=== PATIENT | male | born 1975 | race African-American/Black ===

== ENCOUNTER 2017-02-25 13:00 | Inpatient (IN) | payer MEDICARE ==
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
--- NOTE | ~2017-02-25 | DS ---
Unit #: [id number] #: [id number] Patient: LICO YARBROUGH [id number] [facility] [address] [place] [address] [id number] I MR#: [id number] NAME: LICO YARBROUGH ROOM: P263 Age: 41 Sex: M Admission Date: 02/25/2017 : 1975 Discharge Date: 02/28/2017 Attending Physician: Dallin Barone M.D. Primary Care Physician: Dustin Lancaster M.D. DISCHARGE SUMMARY REASON FOR ADMISSION Mr. Yarbrough is a 41-year-old man, who apparently relocated to [place] from [place] and has been off his medications for some time. He had suicidal ideation with multiple plans and could not contract for safety. He was admitted for stabilization. DIAGNOSTIC STUDIES LABORATORY RESULTS: Please see hospital chart. HOSPITAL COURSE Mr. Yarbrough was admitted and placed on suicide precautions. Invega 6 mg daily and Depakote 500 mg b.i.d. were both restarted as the patient stated these had been effective in the past. Trazodone 50 mg at bedtime was added for insomnia and the patient was reported to have an infection for which he was taking Flagyl 500 mg b.i.d. and this was continued unchanged. Physical examination was unremarkable. He had an uneventful hospital stay and was generally isolated from groups and peers. On the date of discharge, he again contracted for safety with no evidence of suicidal ideation, intent, or plan and no evidence of psychosis. ADMITTING DIAGNOSES AXIS I: Schizophrenia, paranoid type. AXIS II: No diagnosis. AXIS III: Gastrointestinal infection. AXIS IV: AXIS V: DISCHARGE INSTRUCTIONS Follow up with [facility]. DISCHARGE MEDICATIONS Invega 6 mg daily for psychosis, Depakote 500 mg b.i.d. for mood stability, trazodone 50 mg at bedtime for insomnia, Flagyl 500 mg b.i.d. until gone for infection. CONDITION AT DISCHARGE Improved. PROGNOSIS Fair to good. Unit #: [id number] #: [id number] Patient: LICO YARBROUGH DIET AND ACTIVITY Per primary care doctor. Dictated by... Dallin Barone M.D. [facility]/kayleigh TD: 03/01/2017 01:05 JOB #: [id number] DISCHARGE SUMMARY Page 1 of 1 X Dallin Barone MD DISCHARGE SUMMARY
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
== END 2017-02-28 16:25 | disposition home or self-care (01) | DRG 885 ==
LOC: P2L 19:32
DX: F20.0 Paranoid schizophrenia (principal); Z59.0 Homelessness; R45.851 Suicidal ideations; A09 Infectious gastroenteritis and colitis, unspecified; Z62.810 Personal history of physical and sexual abuse in childhood

== ENCOUNTER 2017-03-04 10:00 | Inpatient (IN) | payer MEDICARE ==
--- NOTE | ~2017-03-04 | PA ---
Unit #: [id number] #: [id number] Patient: LICO YARBROUGH [id number] [place] [address] [id number] I MR#: [id number] NAME: LICO YARBROUGH ROOM: P252 Age: 41 Sex: M Admission Date: 03/04/2017 : 1975 Date of Assessment: 03/05/2017 Attending Physician: Dallin Barone M.D. Admitting Physician: Dallin Barone M.D. Primary Care Physician: Dustin Lancaster M.D. PSYCHIATRIC ASSESSMENT INFORMANTS Patient, partially reliable. [place], reliable. CHIEF COMPLAINT Suicidal ideation. HISTORY OF PRESENT ILLNESS Mr. Yarbrough is a 41-year-old man, just recently discharged from this facility, who continued to report auditory hallucinations with a plan to kill himself. He had multiple psychiatric symptoms and had a plan to inhale burning charcoal. He was readmitted for further assessment and stabilization. PAST PSYCHIATRIC HISTORY As noted, the patient has a history of treatment for depression and schizophrenia in the past and this is his second admission to [facility] in recent days. FAMILY PSYCHIATRIC HISTORY None reported. SOCIAL HISTORY Please see previous assessments. The patient appears to be temporarily homeless in the [place] area. PAST MEDICAL HISTORY No chronic medical problems. MEDICATIONS Please see MAR. ALLERGIES No known medication allergies. SUBSTANCE USE HISTORY None reported. MENTAL STATUS EXAMINATION Mr. Yarbrough presented as a mildly disheveled man, appearing his stated age. His speech was spontaneous, but sparse. His mood was depressed and irritable with a congruent affect. He was alert and fully oriented. His memory and concentration were intact. His thought processes did not appear psychotic or disorganized, although he reported auditory Unit #: [id number] #: [id number] Patient: LICO YARBROUGH hallucinations with command suicidal content. He also reported ongoing suicide thoughts. Insight and judgment were fair. Fund of knowledge and abstraction were fair. ASSETS AND LIABILITIES The patient appears to know local resources and is voluntary. Liabilities include recent relapse. ADMITTING DIAGNOSES AXIS I: Schizophrenia, paranoid type by history. Major depressive disorder. AXIS II: No diagnosis. AXIS III: None. AXIS IV: AXIS V: PSYCHIATRIC PLAN The patient was readmitted and placed back on his previous effective medications. We will explore further treatment options for him and anticipate discharge after about a five-day stay. Dictated by... Connie Sánchez/kayleigh TD: 03/07/2017 21:03 JOB #: [id number] PSYCHIATRIC ASSESSMENT Page 1 of 1 X Dallin Barone MD X PSYCHIATRIC ASSESSMENT
--- NOTE | ~2017-03-04 | PN ---
Unit #: [id number] #: [id number] Patient: LICO YARBROUGH [id number] [facility] [address] [place] [address] [id number] MR#: [id number] NAME: LICO YARBROUGH ROOM: P252 Age: 41 Sex: M Admission Date: 03/04/2017 : 1975 Attending Physician: Dallin Barone M.D. Admitting Physician: Dallin Barone M.D. Primary Care Physician: Connie Mcgraw PROGRESS NOTES DATE 03/06/2017 DISCUSSION Mr. Yarbrough continues to report depression, although he looks a little better today on interview. He is alert and fully oriented. His memory and concentration are fair and his thought processes are logical with no evidence of psychosis. ASSESSMENT Schizophrenia by history, major depression. PLAN We will continue current treatment plan and anticipate discharge in the near future. Dictated by... Connie SánchezH/ts TD: 03/09/2017 08:19 JOB #: [id number] [facility] PROGRESS NOTES Page 1 of 1 X Dallin Barone MD X PROGRESS NOTE
--- NOTE | ~2017-03-04 | DS ---
Unit #: [id number] #: [id number] Patient: LICO YARBROUGH [id number] [facility] [address] [place] [address] [id number] I MR#: [id number] NAME: LICO YARBROUGH ROOM: [facility] Age: 41 Sex: M Admission Date: 03/04/2017 : 1975 Discharge Date: 03/07/2017 Attending Physician: Dallin Barone M.D. Primary Care Physician: Dustin Lancaster M.D. DISCHARGE SUMMARY REASON FOR ADMISSION Mr. Yarbrough is a 41-year-old man who was just discharged from this facility, who reported a relapse onto auditory hallucinations with suicidal content. He was unable to contract for safety and was admitted for stabilization. DIAGNOSTIC STUDIES LABORATORY RESULTS: Please see hospital chart. HOSPITAL COURSE Mr. Yarbrough was admitted and placed on suicide precautions. His home medications were restarted. He had an uneventful hospital stay with no evidence of response to internal stimuli, although he did have some odd behaviors on the unit. He contracted for safety on the date of discharge and stated that he obtained placement in the community. DISCHARGE DIAGNOSES AXIS I: Schizophrenia, paranoid type; major depressive disorder. AXIS II: No diagnosis. AXIS III: Recent gastrointestinal infection. AXIS IV: AXIS V: DISCHARGE INSTRUCTIONS Follow up with [facility]. DISCHARGE MEDICATIONS Invega 6 mg daily for psychosis, Depakote 500 mg b.i.d. for mood stability, trazodone 50 mg at bedtime for insomnia, and Flagyl 500 mg b.i.d. until gone for infection. CONDITION AT DISCHARGE Improved. PROGNOSIS Fair to good. DIET AND ACTIVITY Per primary care physician. Dictated by... Dallin Barone M.D. Unit #: [id number] #: [id number] Patient: LICO YARBROUGH [facility]/modl TD: 03/08/2017 00:37 JOB #: [id number] DISCHARGE SUMMARY Page 1 of 1 X Dallin Barone MD X DISCHARGE SUMMARY
[2017-03-06 10:26] LABS: AMPHETAMINE NEG (NEG); BARBITURATES NEG (NEG); BENZODIAZEPINES NEG (NEG); COCAINE NEG (NEG); MARIJUANA POS (NEG); OPIATES NEG (NEG); TRICYCLIC ANTIDEPRESSANTS NEG (NEG); U METHADONE NEG (NEG)
== END 2017-03-07 11:30 | disposition home or self-care (01) | DRG 885 ==
LOC: P2L 15:00
PROVIDERS: Psychiatry & Neurology Psychiatry
DX: F20.0 Paranoid schizophrenia (principal); F32.9 Major depressive disorder, single episode, unspecified
CPT/HCPCS: 80164; 80307

== ENCOUNTER 2017-06-15 02:00 | Inpatient (IN) | payer OTHER ==
[~2017-06-15] VITALS: Ht 180.3 cm; Wt 81.6 kg
--- NOTE | ~2017-06-15 | HP ---
Unit #: [id number] #: [id number] Patient: LICO CAREY [id number] [place] [address] [id number] I MR#: [id number] NAME: LICO CAREY ROOM: P208 Age: 41 Sex: M Admission Date: 06/15/2017 : 1975 Attending Physician: Dallin Barone M.D. Admitting Physician: Dallin Barone M.D. Primary Care Physician: Coty Manley M.D. HISTORY AND PHYSICAL HISTORY OF PRESENT ILLNESS Lico is a 41-year-old male admitted to [address] [place] [address] with depression and verbalizing wanting to hurt himself. He has had other admissions to this facility. PAST MEDICAL HISTORY Nothing significant. PAST SURGICAL HISTORY Nothing reported. ALLERGIES No known drug allergies. SOCIAL HISTORY He smokes 1/2 pack per day. Drinks alcohol socially. Admits to using marijuana frequently. FAMILY HISTORY Medically noncontributory. REVIEW OF SYSTEMS CONSTITUTIONAL: No fever or chills. HEENT: Denies any sore throat, ear pain or runny nose. CARDIOVASCULAR: Denies chest pain, irregular heart rhythm or palpitations. CHEST: Denies shortness of breath or cough. No hemoptysis. GASTROINTESTINAL: Denies nausea, vomiting, diarrhea or chronic constipation. ENDOCRINE: Denies history of increased thirst or urination. No recent significant weight loss or gain. GENITOURINARY: Denies dysuria, frequency, or hematuria. SKIN: Denies any rashes. HEMATOLOGIC: Denies history of increased bleeding or bruising. MUSCULOSKELETAL: Denies any hot, swollen joints. No generalized muscle pain. NEUROLOGIC: Denies problems with vision or speech. No frequent, severe headaches. No numbness, tingling or weakness in any extremities. Denies loss of bladder or bowel control. CURRENT MEDICATIONS 1. Invega 6 mg daily. 2. Remeron 30 mg q.h.s. 3. Desyrel 50 mg q.h.s. Unit #: [id number] #: [id number] Patient: LICO CAREY 4. Milk of Magnesia p.r.n. 5. Maalox p.r.n. 6. Tylenol p.r.n. 7. Nicotine patch 14 mg daily. PHYSICAL EXAMINATION GENERAL: Alert, well-nourished, in no apparent distress. VITAL SIGNS: Blood pressure 140/88, heart rate 74, respirations 16, temperature 98.6. WEIGHT: 180. HEIGHT: 5 feet 11 inches. SKIN: Warm and dry without rash or lesion. HEENT: Normocephalic. TMs not viewed. Oral and nasal passages clear. Conjunctivae clear. PERRLA. EOMs intact. NECK: Supple without lymphadenopathy or thyromegaly. HEART: Regular rate and rhythm without murmur. LUNGS: Clear. ABDOMEN: Soft, nontender. : Not done. EXTREMITIES: No evidence of cyanosis, clubbing or edema. Moves all without focal deficit. NEUROLOGICAL: Grossly within normal limits. Cranial Nerves: II: Visual rosales are intact. III, IV AND : Extraocular movements are intact. Pupils are equal, round and reactive to light. V: Facial sensation is grossly normal. VII: Facial movements and expression are normal. VIII: Auditory acuity grossly intact. IX, X: Uvula is midline. Phonation is normal. XI: Patient shrugs shoulders and turns head normally. XII: Tongue protrudes in the midline. Sensory and Motor Function: Sensory and motor sensation is grossly normal. Motor: moves all extremities well. Coordination: Gait is normal. Deep Tendon Reflexes: Intact. IMPRESSION Psychiatric admission. RECOMMENDATIONS PSYCHIATRIC: Per psychiatrist. MEDICAL: See no contraindication to participate in facility's activities. MEDICAL PROGNOSIS Good. MEDICAL CONDITION Stable. Dictated by... Suellen Machado P.A.-C. for Connie Solomon/kera TD: 06/15/2017 17:28 JOB #: [id number] Unit #: [id number] #: [id number] Patient: LICO CAREY HISTORY AND PHYSICAL Page 1 of 1 X Suellen Machado HISTORY AND PHYSICAL
--- NOTE | ~2017-06-15 | PA ---
Unit #: [id number] #: [id number] Patient: LICO YARBROUGH [id number] [facility] [address] [place] [address] [id number] I MR#: [id number] NAME: LICO YARBROUGH ROOM: P208 Age: 41 Sex: M Admission Date: 06/15/2017 : 1975 Date of Assessment: 06/15/2017 Attending Physician: Dallin Barone M.D. Admitting Physician: Dallin Barone M.D. Primary Care Physician: Coty Manley M.D. PSYCHIATRIC ASSESSMENT DATE OF SERVICE 06/15/2017. INFORMANTS The patient reliable; OLOP, reliable. CHIEF COMPLAINT Suicidal ideation. HISTORY OF PRESENT ILLNESS Mr. Yarbrough is a 41-year-old man, who came back to the hospital after an absence of about 3 months. He reported multiple psychiatric symptoms including depression and vague auditory hallucinations. He reported suicidal ideation. He was admitted for stabilization. PAST PSYCHIATRIC HISTORY Previous treatment for depression at this facility. He has been noncompliant with medications outside the hospital. FAMILY PSYCHIATRIC HISTORY None reported. SOCIAL HISTORY The patient is erratically homeless in [facility] and has minimal psychosocial support. PAST MEDICAL HISTORY No chronic medical problems. MEDICATIONS Please see MAR. ALLERGIES No known medication allergies. SUBSTANCE USE HISTORY No reported history of chemical dependence. MENTAL STATUS EXAMINATION Mr. Yarbrough presented as a mildly disheveled man, appearing his stated age. He was terse, but cooperative with the examination. His mood was depressed and irritable with a congruent affect. He was alert and fully oriented. Memory and concentration were fair. Thought processes were Unit #: [id number] #: [id number] Patient: LICO YARBROUGH goal directed with no active psychosis. He reported some suicidal ideation, but contracted for safety in the inpatient setting. Insight and judgment were fair. Fund of knowledge and abstraction fair to poor. ASSETS AND LIABILITIES The patient knows local resources and presents voluntarily for treatment. Liabilities include erratic compliance, possible substance use. ADMITTING DIAGNOSES AXIS I: Schizoaffective disorder, F25.0; history of polysubstance dependence. AXIS II: Antisocial traits. AXIS III: None acute. AXIS IV: AXIS V: PSYCHIATRIC PLAN The patient was admitted and placed on suicide precautions. Invega 6 mg daily, Remeron 30 mg at bedtime, and trazodone 50 mg at bedtime p.r.n. will be restarted. He will enroll in dual diagnosis groups and activities, and a physical examination and laboratory studies will be ordered and reviewed. TREATMENT GOALS Resolution of suicidal ideation, improvement in insight, and improvement in coping skills. DISCHARGE PLANNING Follow up with [facility]. ESTIMATED LENGTH OF STAY 5 days. Dictated by... Dallin Barone M.D. [facility]/kayleigh TD: 06/21/2017 15:29 JOB #: [id number] PSYCHIATRIC ASSESSMENT Page 1 of 1 X Dallin Barone MD X PSYCHIATRIC ASSESSMENT
--- NOTE | ~2017-06-15 | DS ---
Unit #: [id number] #: [id number] Patient: LICO YARBROUGH [id number] [facility] [address] [place] [address] [id number] I MR#: [id number] NAME: LICO YARBROUGH ROOM: P208 Age: 41 Sex: M Admission Date: 06/15/2017 : 1975 Discharge Date: 06/16/2017 Attending Physician: Dallin Barone M.D. Primary Care Physician: Coty Manley M.D. DISCHARGE SUMMARY REASON FOR ADMISSION Mr. Yarbrough is a 41-year-old man with a previous history of psychotic symptoms, depression and some drug use that he was unwilling to specify. He reported suicidal ideation with a plan to asphyxiate himself in his car with burning charcoal. He was admitted for stabilization. DIAGNOSTIC STUDIES LABORATORY DATA: Please see hospital chart. HOSPITAL COURSE Patient was admitted and placed on suicide precautions. Paliperidone, Remeron and trazodone were restarted without incident but he participated only briefly in psychotherapy groups and activities. The following day the patient once again stated that he was "fine to go" with no suicidal ideation, intent or plan and appears somewhat superficial about his commitment to outpatient treatment. However, as he lacked criteria for involuntary hospitalization, he was discharged at his request. DISCHARGE DIAGNOSIS AXIS I: Schizoaffective disorder. AXIS II: Antisocial traits. AXIS III: None acute. INSTRUCTION TO PATIENT Follow up with [facility] at this facility and [facility]. DISCHARGE MEDICATIONS 1. Invega 6 mg daily for psychosis. 2. Remeron 30 mg at bedtime for depression. 3. Trazodone 50 mg at bedtime as needed for insomnia. CONDITION ON DISCHARGE Fair. PROGNOSIS Fair. DIET AND ACTIVITY Ad esther. Dictated by... Unit #: [id number] #: [id number] Patient: LICO YARBROUGH Dallin Barone M.D. [facility]/dzh TD: 06/21/2017 17:02 JOB #: [id number] DISCHARGE SUMMARY Page 1 of 1 X Dallin Barone MD X DISCHARGE SUMMARY
[2017-06-16 10:10] LABS: AMPHETAMINE NEG (NEG); BARBITURATES NEG (NEG); BENZODIAZEPINES NEG (NEG); COCAINE NEG (NEG); MARIJUANA POS (NEG); OPIATES NEG (NEG); TRICYCLIC ANTIDEPRESSANTS NEG (NEG); U METHADONE NEG (NEG)
== END 2017-06-16 11:35 | disposition home or self-care (01) | DRG 885 ==
LOC: P2S 06:25
PROVIDERS: Psychiatry & Neurology Psychiatry
DX: F25.9 Schizoaffective disorder, unspecified (principal); R45.851 Suicidal ideations; Z59.0 Homelessness; Z72.811 Adult antisocial behavior
CPT/HCPCS: 80307